=== PATIENT | male | born 1960 | race Caucasian/White ===

== ENCOUNTER 2022-08-22 04:48 | Emergency (ER) | payer OTHER ==
[2022-08-22] MEDS ORDERED: ASPIRIN81 MG PO (05:28)
[2022-08-22] MEDS ORDERED: NORVASC5 M1 PO (05:28)
[2022-08-22] MEDS ORDERED: HYDROCORTISO2.5 % TOP (05:29)
[2022-08-22] MEDS ORDERED: LIPITOR20 M1 PO (05:30)
[2022-08-22] MEDS ORDERED: LISINOPRIL10 MG PO (05:31)
[2022-08-22 05:47] VITALS: BP 160/86
[2022-08-22 06:00] VITALS: BP 168/75
[2022-08-22 06:15] VITALS: BP 146/73
[2022-08-22] MEDS ORDERED: VOLTAREN75 MG PO (06:24)
[2022-08-22 06:30] VITALS: BP 155/74
== END 2022-08-22 06:50 | disposition designated cancer center or children's hospital (05) | DRG 556 ==
LOC: ED 04:48
DX: M25.511 Pain in right shoulder (principal); I10 Essential (primary) hypertension; E78.5 Hyperlipidemia, unspecified; K21.9 Gastro-esophageal reflux disease without esophagitis; F65.4 Pedophilia